=== PATIENT | female | born 1970 | race Caucasian/White ===

== ENCOUNTER 2021-01-16 06:27 | Day surgery (SDC) | payer OTHER ==
[~2021-01-16] VITALS: Ht 165.1 cm; Wt 93.6 kg
[~2021-01-16 06:27] MED LIST: ADVAIR 250-501 EACH INH; CALCIUM 600 +1 EAC8 PO; CENTRUM ADULTS1 EACH PO; CYCLOBENZAPRINE10 MG PO; PROBIOTIC1 EAC1 PO; SINGULAIR10 MG PO; SUDAFED 12-HOU120 MG PO; TRAZODONE HCL50 MG PO; VENTOLIN HFA18 GM INH; ZYRTEC10 MG PO
--- NOTE | 2021-01-16 08:07 | NUR ---
01/16/21 0807 Kari Prajapati 0754 PT TO PACU SLEEPY BUT AROUSABLE DENIES PAIN OR NAUSEA
--- NOTE | 2021-01-17 07:31 | OR ---
[facility] [address], [place] [address] Signed DATE OF OPERATION: 01/16/2021 SURGEON: Kathya Fowler MD PREOPERATIVE DIAGNOSES: Screening. POSTOPERATIVE DIAGNOSIS: A 4 mm polypoid lesion at 70 cm. PROCEDURE: Colonoscopy with hot biopsy. ESTIMATED BLOOD LOSS: None. INDICATIONS: Mitzi is a 50-year-old female, asked to see me for screening colonoscopy. She has no lower GI complaints. This would be her 1st colonoscopy. She gives no family history of colon cancer or polyps. She reminded me that I helped her and her daughter with their colonoscopies. Consequently, she is familiar with our process. In the office, I gave her a pamphlet on colonoscopy. She understands the nature of the test along with the risk including, but not limited to gas, bloating, crampy abdominal pain, bleeding, perforation requiring surgery, and missed diagnosis. She also understands the need for IV conscious sedation. She had expressed understanding and wished to proceed. DESCRIPTION OF PROCEDURE: Mitzi was taken into our endoscopy suite and placed in the left lateral decubitus position. She was given a total of 6 mg of Versed and 150 mcg of fentanyl to cover the case. A digital rectal exam was performed and this was unremarkable. The adult colonoscope was introduced and advanced around into the cecum under direct visualization of camera. She required a little extra sedation and abdominal compression in order to move the scope through the transverse colon and around the hepatic flexure. Her prep was quite good. We could easily see the appendiceal orifice and the ileocecal valve. The scope was then slowly withdrawn. She had a little irritation around 70 cm. It is probably from the prep. It looked like she had a small inflammatory polypoid lesion on the side of the colon. Consequently, removed it with hot biopsy forceps for pathologic review. The rest of the colon was unremarkable. The rectum was unremarkable. There was no diverticulosis. Upon retroflexion of scope, we saw no pathology above the anal canal. After this, the gas was suctioned out and colonoscope removed. Mitzi tolerated Electronically Signed By: KATHYA FOWLER MD 01/17/21 0731 PATIENT NAME: MITZI ARNOLD OPERATIVE REPORT DATE OF : 70 REPORT #: [id number] PHYSICIAN: KATHYA FOWLER MD PCP: VARGAS EDDY PAC REPORT IS CONFIDENTIAL AND NOT TO BE RELEASED WITHOUT AUTHORIZATION [facility] [address] [place] [id number] Signed procedure quite well. RECOMMENDATIONS: I will see Mitzi back in my office in 7 to 14 days to review her results. MD ARNOL Arriaga/ELIANA /[id number] cc: MD Vargas Arriaga PA-C Copies: KATHYA FOWLER MD ~ Electronically Signed By: KATHYA FOWLER MD 01/17/21 0731 PATIENT NAME: MITZI ARNOLD OPERATIVE REPORT DATE OF : 70 REPORT #: [id number] PHYSICIAN: KATHYA FOWLER MD PCP: VARGAS EDDY PAC REPORT IS CONFIDENTIAL AND NOT TO BE RELEASED WITHOUT AUTHORIZATION
--- NOTE | 2021-01-22 15:27 | PATH ---
[facility] [address], [place] [address] Signed SPECIMEN(S): A COLON POLYP AT 70 CM SPECIMEN SOURCE: A. COLON POLYP AT 70 CM CLINICAL HISTORY: Colon screening. MICROSCOPIC DESCRIPTION: Histologic sections of all submitted blocks are examined by light microscopy. These findings, together with the gross examination, support the pathologic diagnosis. FINAL PATHOLOGIC DIAGNOSIS: Colon, polyp at 70 cm, polypectomy: - Cauterized colonic mucosa with no identifiable histopathologic abnormality. - Negative for dysplasia or malignancy. COMMENT: Multiple additional deeper levels were examined. NAL:cml:C2NR GROSS DESCRIPTION: The specimen, labeled "Mandella, colon polyp, 70 cm," is received in formalin and consists of one mendez soft tissue fragment that measures 0.2 cm in greatest dimension. The specimen is entirely submitted in cassette (A1). RKP (under the direct supervision of a pathologist) The Gross Description was prepared using a voice recognition system. The report was reviewed for accuracy; however, sound-alike word errors, addition and/or deletions may occur. If there is any question about this report, please contact Client Services. PERFORMING LABORATORY: The technical component was performed by [facility], [address] [place] [id number] (Data Security Coordinator: Maya Jones MD; CLIA# [id number]). [facility] [address] [address] (CLIA# [id number]). Diagnostician: Gladys Oakley MD Pathologist PATIENT NAME: EAN ARNOLD PATHOLOGY DATE OF : 70 REPORT #: [id number] PHYSICIAN: ALONDRA PATHOLOGY PCP: VARGAS EDDY PAC REPORT IS CONFIDENTIAL AND NOT TO BE RELEASED WITHOUT AUTHORIZATION [facility] [address] [place] [address] Signed Electronically Signed 01/22/2021 Copies: ~ PATIENT NAME: EAN ARNOLD PATHOLOGY DATE OF : 70 REPORT #: [id number] PHYSICIAN: ALONDRA PATHOLOGY PCP: VARGAS EDDY PAC REPORT IS CONFIDENTIAL AND NOT TO BE RELEASED WITHOUT AUTHORIZATION
== END 2021-01-16 08:32 | disposition home or self-care (01) ==
LOC: DS 06:27 → OPS 06:27 → DS 08:15 → OPS 08:32
PROVIDERS: ATTEND Colon & Rectal Surgery
PROC: 0DBK8ZX Excision of Ascending Colon, Via Natural or Artificial Opening Endoscopic, Diagnostic (ICD-10-PCS; principal; 2021-01-16 08:15)
DX: Z12.11 Encounter for screening for malignant neoplasm of colon (principal); K63.5 Polyp of colon; J45.909 Unspecified asthma, uncomplicated
CPT/HCPCS: 99153; G0500; J2250; J3010; J7121